=== PATIENT | female | born 1980 | race Two or more races ===

== ENCOUNTER 2016-09-29 07:30 | Inpatient (IN) | payer BC ==
[2016-09-29 08:30] VITALS: BMI 41.5
[2016-09-29] MEDS ORDERED: ELECTROLYTE-148 SOLN 500 ML IV ONE ×3 (09:13→10:15)
[2016-09-29] MEDS ORDERED: CITRIC ACID/SODIUM CITRATE 30 ML UNIT-DOSE CUP PO ONE (09:13)
[2016-09-29] MEDS ORDERED: ELECTROLYTE-148 SOLN 1,000 ML IV SCH ×2 (09:15→12:15)
--- NOTE | 2016-09-29 09:29 | HP ---
[id number] Chief Complaint: 36 yo P1 with at EGA 39w3d admitted for repeat section. 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: Alzheimer's, CVA, Dementia, Migraine, Multiple Sclerosis, Peripheral Neuropathy, Parkinson's, Seizure, Syncope, TIA, Vertigo, Other Cardiovascular: No: AFIB, Aneurysm, Aortic Insufficiency, Aortic Stenosis, CAD, CHF, Deep Vein Thrombosis, HTN, Hyperlipdemia, [place], Mitral Insufficiency, Mitral Stenosis, Murmur, Pulmonary Hypertension, Other Pulmonary: No: Asthma, Bronchitis, Cancer, COPD, O2 Dependent, Pneumonia, Previously Intubated, Pulmonary Embolus, Pulmonary Fibrosis, Sleep Apnea, Other Gastrointestinal: No: Ascites, Cancer, Constipation, Crohn's Disease, Diverticulitis, Diverticulosis, Esophageal Varices, Gastritis, GERD, GI Bleed, Hemorrhoids, Hiatal Hernia, Inflamatory Bowel Disease, Irritable Bowel Disease, Pancreatitis, Peptic Ulcer Disease, Ulcerative Colitis, Other Hepatobiliary: No: Cirrhosis, Cholelithiasis, Cholecystitis, Choledocholithiasis , Hepatitis A, Hepatitis B, Hepatitis C, Other Renal/: No: Renal Failure, Renal Inusuff, BPH, Cancer, Hematuria, Hemodialysis , Neurogenic Bladder, Renal Calculi, UTI, Other Reproductive: No: Ectopic , Endometriosis, Fibroids, PID, Polycystic Ovary Syndrome, Postmenopausal, Other ...: 7 ...Para: 1 ...Term: 1 ...: 0 ...Spon : 2 ...Induced : 3 ...Multiple Gestation: 0 ...LMP: 12/27/15 ... Weeks Gestation by Dates: 39.5 ...EDC by Dates: 10/02/16 ...EDC by Sono: 10/04/16 Heme/Onc: No: Anemia, B12 Deficiency, Bleeding Disorder, Cancer, Current Chemotherapy, Current Radiation Therapy, Hemochromatosis, Hypercoaguable State, Myeloproliferative Synd, Sickle Cell Disease, Sickle Cell Trait, Thrombocytopenia, Other Infectious Disease: No: AIDS, C-Diff, Herpes Zoster, HIV, MRSA, STD's, Tuberculosis, VREF, Other Psych: No: Addictions, Anxiety, Bipolar, Depression, Panic, Psychosis, Schizophrenia, Other Musculoskeletal: No: Bursitis, Chronic low back pain, Hemiparesis, Hemiplegia, Osteoarthritis, Paraplegia, Other Rheumatology: No: Fibromyalgia, Gout, Lupus, Rheumatoid Arthritis, Sarcoidosis, Vasculitis, Other ENT: No: Allergic Rhinitis, Sinusitis, Other Endocrine: Yes: Other (GDM A2) Dermatology: No: Basal Cell, Cellulitis, Eczema, Melanoma, Psoriasis, Squamous Cell, Other - Past Surgical History Past Surgical History: Yes: Hx Myomectomy: No Hx Transabdominal Cerclage: No - Smoking History Smoking history: Never smoked Have you smoked in the past 12 months: No Aproximately how many cigarettes per day: 0 - Alcohol/Substance Use Hx Alcohol Use: No History of Substance Use: reports: None - Social History Usual Living Arrangement: Yes: With Spouse, With Child ADL: Independent History of Recent Travel: No Home Medications - Allergies Allergies/Adverse Reactions: Allergies Allergy/AdvReac Type Severity Reaction Status Date / Time No Known Drug Allergies Allergy Verified 09/02/16 16:14 - Home Medications Home Medications: Ambulatory Orders Pnv95/Iron Fum/Folic Acid [ Caplet] 1 each PO DAILY 04/26/16 Insulin (Levemir) [Levemir Flexpen -] 20 units SQ DAILY 08/26/16 Insulin Aspart [Novolog] 16 unit SQ DAILY 08/26/16 Insulin Aspart [Novolog] 26 unit SQ DAILY 08/26/16 Review of Systems Findings/Remarks: Well appearing - Review of Systems Constitutional: reports: No Symptoms Eyes: reports: No Symptoms HENT: reports: No Symptoms Neck: reports: No Symptoms Cardiovascular: reports: No Symptoms Respiratory: reports: No Symptoms Gastrointestinal: reports: No Symptoms Genitourinary: reports: No Symptoms Breasts: reports: No Symptoms Reported Musculoskeletal: reports: No Symptoms Integumentary: reports: No Symptoms Neurological: reports: No Symptoms Endocrine: reports: No Symptoms Hematology/Lymphatic: reports: No Symptoms Psychiatric: reports: No Symptoms Pain Intensity: 0 Physical Exam - Maternity Vital Signs: Vital Signs Temperature 97.5 F L 09/29/16 08:21 Pulse Rate 72 09/29/16 08:21 Respiratory Rate 20 09/29/16 08:21 Blood Pressure 111/58 09/29/16 08:21 O2 Sat by Pulse Oximetry (%) Constitutional: Yes: No Distress, Calm, Obese Eyes: Yes: WNL, Conjunctiva Clear HENT: Yes: WNL, Atraumatic, Normocephalic Neck: Yes: WNL, Supple, Trachea Midline Cardiovascular: Yes: WNL, Regular Rate and Rhythm Lungs: Clear to auscultation, Normal air movement Breast(s): Yes: WNL - Abdominal Exam/OB Fundal Height: 41 Number of Fetuses: Single Presentation: Vertex Contractions: No Monitor Mode: External Heart Rate (range): 140 Heart Rate Location: Midline Category: I Accelerations: Non-Uniform Decelerations: None - Vaginal Exam/OB Vaginal Bleediing: No Speculum Exam: No Dilatation (cm): 0 Effacement (%): 0 Amniotic Membrane Status: Intact Presentation: Vertex/Position Station: -4 - Physical Exam Musculoskeletal: Yes: WNL Extremities: Yes: WNL Edema: No Integumentary: Yes: WNL Deep Tendon Reflex Grade: Normal +2 ...Motor Strength: WNL Psychiatric: Yes: WNL, Alert, Oriented Hemorrhage Risk Assessment - Risk Factors Medium Risk Factors: Yes: Prior , uterine surgery,or multiple laparotomies, Obesity (BMI >40) High Risk Factors: Yes: None Risk Score: 2 Risk Level: High Risk Imaging - Results Ultrasound: Report Reviewed Problem List - Problems (1) with 39 completed weeks gestation Assessment/Plan: Pt is not in labor. Fetus with Category I tracing Code(s): Z3A.39 - 39 WEEKS GESTATION OF (2) Previous delivery, antepartum condition or complication Assessment/Plan: Pt declined and requested repeat section. We had a long discussion re: risks of surgery and delivery, including infection, bleeding, trauma to underlying structures and organs, injury to fetus, pain, etc. The pt verbalized her understanding. Code(s): O34.219 - MATERNAL CARE FOR UNSP TYPE SCAR FROM PREVIOUS DEL (3) GDM, class A2 Assessment/Plan: FSG are well controlled with insulin. Peds aware. Code(s): O24.414 - GESTATIONAL DIABETES IN , INSULIN CONTROLLED (4) Maternal obesity affecting , antepartum Code(s): O99.210 - OBESITY COMPLICATING , UNSPECIFIED TRIMESTER (5) Prior poor obstetrical history in third trimester, antepartum Assessment/Plan: Prior SAB and TOP. First child with developmental delays. Code(s): O09.293 - SUPRVSN OF PREG W POOR REPRODCTV OR OBSTET HX, THIRD TRI (6) Twin , mate stillborn Assessment/Plan: Pt with one twin demise at second trimester. Code(s): Z37.3 - TWINS, ONE LIVEBORN AND ONE STILLBORN Assessment/Plan 36 yo P1 with prior C/S and high-risk admitted for repeat C/S. Risks, benefits, alternatives were discussed.
[2016-09-29] MEDS ORDERED: morphine SULFATE/Preservative Free 0.5 MG/ML (1cc Syringe) EP ONE (10:02)
[2016-09-29] MEDS ORDERED: ONDANSETRON 4 MG/2 ML VIAL IVPB PRN (10:02)
[2016-09-29] MEDS ORDERED: IBUPROFEN 800 MG/8 ML IJ IVPB PRN (10:03)
[2016-09-29 12:03] LABS: ARTERIAL BLD GAS O2 SATURATION 18.7 % (90-98.9); ARTERIAL BLOOD GAS BASE EXCESS -1.8 meq/l (-2-2); ARTERIAL BLOOD GAS HCO3 25.5 meq/L (22-26); ARTERIAL BLOOD GAS pH 7.28 (7.35-7.45)
[2016-09-29 12:05] LABS: LPM/O2% 21%; PT. ON O2? NO; TYPE OF O2 ROOM AIR
[2016-09-29 12:06] LABS: VENOUS BLOOD GAS HCO3 22.7 meq/L (19-25)
[2016-09-29 12:06] LABS: ARTERIAL BLOOD GAS PO2 14.5 mmHg (80-100)
[2016-09-29 12:07] LABS: VENOUS PH 7.37 (7.32-7.42)
--- NOTE | 2016-09-29 12:49 | PN ---
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
--- NOTE | 2016-09-29 13:56 | OP ---
DATE OF OPERATION: 09/29/2016 PREOPERATIVE DIAGNOSES: A 36-year-old female with at 39 weeks 3 days, previous section, CISCO A2, maternal obesity affecting antepartum care and management, twin gestation with 1 twin demised in the 2nd trimester, patient is not in labor. POSTOPERATIVE DIAGNOSES: A 36-year-old female with at 39 weeks 3 days, previous section, CISCO A2, maternal obesity affecting antepartum care and management, twin gestation with 1 twin demised in the 2nd trimester, patient is not in labor, delivered. PROCEDURE: Repeat low-transverse section via Pfannenstiel skin incision. SURGEON: Aldo Hassan MD MAINTENANCE CARPENTER: Raina Chino MD ANESTHESIOLOGIST: Akira Peguero MD ANESTHESIA: Spinal. COMPLICATIONS: None. ESTIMATED BLOOD LOSS: 700 mL. URINE OUTPUT: 700 mL of clear urine at the end of the procedure. IV FLUIDS: 1200 mL of crystalloids. PATHOLOGY: Placenta. FINDINGS: Live baby girl in vertex presentation. No meconium in amniotic fluids. Nuchal cord was wrapped around tightly once and released at delivery. Baby's Apgars are 8 and 9. Baby's weight is 6 pounds 3 ounces. Umbilical cord gases sent. PROCEDURE: The patient was met preoperatively. Risks, benefits, alternatives of surgery were discussed in detail. The patient was then brought to the OR with IV running. She was placed on the surgical table in a sitting position. The spinal anesthesia was achieved without difficulty. The patient was then placed in a supine position with a leftward tilt. She was prepped and draped in the usual sterile fashion. A Key catheter was inserted inside the bladder and left to drain to gravity. The time-out procedure was conducted as per standard protocol. The surgeons then proceeded with the operation. A Pfannenstiel skin incision was made with the knife along the prior scar. The incision was carried taken down to the level of fascia. Dense adhesions were lysed along the way. The fascia was incised in the midline. The incision was extended bilaterally using Banks scissors. The fascia was dissected away from the rectus muscle superiorly and inferiorly using sharp dissection. Good hemostasis was maintained. The rectus muscles were in the midline. The peritoneum was identified and entered sharply. The peritoneal incision was extended superiorly and inferiorly using Metzenbaum scissors. The bladder peritoneum was dissected away from the lower uterine segment using sharp dissection. The bladder was reflected downwards using Ramez retractor. The uterus was incised transversely in the lower uterine segment. The uterine incision was extended bilaterally using bandage scissors. The amniotic bag was ruptured and the fetus was delivered from vertex presentation without complications. A tight nuchal cord was wrapped around once and released without difficulty. 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 The placenta was removed manually without complications. The uterus was cleared of all clots and debris. The uterine cavity was surveyed thoroughly to assure no retained products of conception. The uterine incision was then closed using a 0 Biosyn suture in a running locking stitch, with good hemostasis. The uterine incision was then imbricated using a secondary layer of closure with a Biosyn suture. The bladder peritoneum was approximated using a 2-0 chromic suture. The operative site was irrigated using copious amounts of normal saline. Once the saline was aspirated, good hemostasis was confirmed. The abdominal peritoneum was closed using a 2-0 chromic suture. The rectus muscles were approximated using several interrupted 2-0 chromic sutures. The fascia was closed with a 0 Vicryl suture in 2 segments. The subcutaneous adipose tissues were approximated to eliminate space using 2-0 chromic sutures. The skin was closed with a subcutaneous stitch using a 4-0 Vicryl suture. The patient tolerated procedure well. Sponge, lap, needle counts were correct. Ayanna [id number]
[2016-09-29] MEDS ORDERED: D5W-LR W/ 20 UNITS OXYTOCIN 1,000 ML IV SCH (14:45)
--- NOTE | 2016-09-30 08:01 | PN ---
Progress Note (short form) - Note Progress Note: Post op day#1.S/P C section under spinal with duramorph uneventful.Patient stable and does not c/o pain.No any anesoblem.Patient DC from the thesia related pranesthesia care.
[2016-09-30] MEDS: ENOXAPARIN NA (PORCINE) 40 MG/0.4 ML DISP.SYRIN SQ SCH (11:05)
[2016-09-30] MEDS: ACETAMINOPHEN 325 MG TABLET (FP) PO PRN ×2 (11:48→20:45)
[2016-09-30] MEDS: IBUPROFEN 600 MG TABLET (FP) PO PRN ×2 (11:49→20:45)
[2016-09-30] MEDS ORDERED: oxyCODONE HCL 5 MG TABLET PO PRN ×2 (11:56→11:57)
[2016-09-30] MEDS ORDERED: DIPHTH,PERTUSS(ACELL),TET 0.5 ML DISP.SYRIN IM ONE (14:00)
--- NOTE | 2016-09-30 16:56 | PN ---
Post Progress Note - Subjective Subjective: 36 yo P2 s/p Repeat c/section voiding, ambulating, tolerating PO, + flatus Post Day: 1 Type of Delivery: Repeat C/S Vital Signs: Vital Signs Temperature 98.0 F 09/30/16 05:53 Pulse Rate 68 09/30/16 05:53 Respiratory Rate 20 09/30/16 12:00 Blood Pressure 117/59 09/30/16 05:53 O2 Sat by Pulse Oximetry (%) 100 09/29/16 13:10 Breast Exam: Yes: Soft Uterus: Yes: Fundus Firm Incision: Yes: Dressing dry and intact Abdomen/GI: Yes: Abdomen soft, Tolerating PO Lochia: Yes: Rubra Lochia, amount: Small Extremities: Yes: Calves non-tender Activity: Ambulating Assessment/Plan 36 yo P2 s/p R c/section VSS, Afibrile Doing well pain well managed continue routine care
[2016-10-01] MEDS: ACETAMINOPHEN 325 MG TABLET (FP) PO PRN ×3 (08:18→23:22)
[2016-10-01] MEDS: IBUPROFEN 600 MG TABLET (FP) PO PRN ×3 (08:19→23:23)
[2016-10-01] MEDS: ENOXAPARIN NA (PORCINE) 40 MG/0.4 ML DISP.SYRIN SQ SCH (10:29)
--- NOTE | 2016-10-01 16:55 | PN ---
Post Progress Note - Subjective Subjective: No complaints, (+) flatus, ambulating Post Day: 2 Type of Delivery: Repeat C/S Vital Signs: Vital Signs Temperature 98 F 10/01/16 10:00 Pulse Rate 84 10/01/16 10:00 Respiratory Rate 20 10/01/16 10:00 Blood Pressure 122/79 10/01/16 10:00 O2 Sat by Pulse Oximetry (%) 100 09/29/16 13:10 Breast Exam: Yes: Soft Uterus: Yes: Fundus Firm, Fundus below umbilicus, Non-tender Incision: Yes: Sutures intact Abdomen/GI: Yes: Abdomen soft, Tolerating PO Lochia: Yes: Rubra Lochia, amount: Small Extremities: Yes: Calves non-tender, Edema Perineum: Yes: Intact Activity: Ambulating Problem List - Problems (1) with 39 completed weeks gestation Code(s): Z3A.39 - 39 WEEKS GESTATION OF (2) Previous delivery, antepartum condition or complication Code(s): O34.219 - MATERNAL CARE FOR UNSP TYPE SCAR FROM PREVIOUS DEL (3) GDM, class A2 Code(s): O24.414 - GESTATIONAL DIABETES IN , INSULIN CONTROLLED (4) Maternal obesity affecting , antepartum Code(s): O99.210 - OBESITY COMPLICATING , UNSPECIFIED TRIMESTER (5) Prior poor obstetrical history in third trimester, antepartum Code(s): O09.293 - SUPRVSN OF PREG W POOR REPRODCTV OR OBSTET HX, THIRD TRI (6) Twin , mate stillborn Code(s): Z37.3 - TWINS, ONE LIVEBORN AND ONE STILLBORN Assessment/Plan 36 yo P2 s/p repeat LT C/S, doing well stable, afebrile. care instructions reviewed. Continue routine postop care. Ambulation encouraged.
[2016-10-02 06:25] LABS: EOSINOPHIL 5.5 % (0-4.5); MCH 28.2 pg (25.7-33.7); MCHC 32.2 g/dl (32.0-36.0); MEAN CELL VOLUME 87.7 fl (80-96); MEAN PLT VOLUME 9.8 fl (7.5-11.1); NEUTROPHILS 58.7 % (42.8-82.8); PLATELET COUNT 181 K/MM3 (134-434); RDW 13.9 % (11.6-15.6); WHITE BLOOD COUNT 6.4 K/mm3 (4.0-10.0)
[2016-10-02] MEDS: ACETAMINOPHEN 325 MG TABLET (FP) PO PRN (07:21)
[2016-10-02] MEDS: IBUPROFEN 600 MG TABLET (FP) PO PRN (07:24)
[2016-10-02 08:20] VITALS: BP 131/57; PULSE 60; TEMP 98.6
--- NOTE | 2016-10-02 09:03 | DS ---
Physical Exam-PEST CONTROL OPERATOR Vital Signs: Vital Signs Temperature 98.6 F 10/02/16 08:18 Pulse Rate 60 10/02/16 08:18 Respiratory Rate 18 10/02/16 08:18 Blood Pressure 131/57 10/02/16 08:18 O2 Sat by Pulse Oximetry (%) 100 09/29/16 13:10 Constitutional: Yes: Well Nourished, No Distress, Calm Eyes: Yes: WNL, Conjunctiva Clear HENT: Yes: WNL, Atraumatic, Normocephalic Neck: Yes: WNL, Supple, Trachea Midline Cardiovascular: Yes: WNL, Regular Rate and Rhythm Respiratory: Yes: WNL, Regular, CTA Bilaterally Gastrointestinal: Yes: WNL, Normal Bowel Sounds, Soft Renal/: Yes: WNL External Genitalia: Yes: Normal Internal Exam Deferred: Yes ....Post : Yes: Uterus firm, Uterus non-tender, Slight lochia rubra Breast(s): Yes: WNL Musculoskeletal: Yes: WNL Extremities: Yes: WNL Edema: Yes Edema: LLE: Trace, RLE: Trace Integumentary: Yes: WNL Wound/Incision: Yes: Clean/Dry, Well Approximated, Sutures Intact, Steri Strips , Open to air Neurological: Yes: WNL, Alert, Oriented ...Motor Strength: WNL Psychiatric: Yes: WNL, Alert, Oriented Labs: CBC, BMP 10/02/16 05:43 Delivery - Delivery Section: Repeat, Low Flap Transverse Type of Anesthesia: Spinal Episiotomy/Laceration: None EBL (cc): 700 Delivery, Single - Stages of Labor Date of Delivery: 09/29/16 Time of Delivery: 11:11 Time Placenta Delivered: 11:12 Placenta: Yes: Manual Removal, Normal Configuration - Condition of Stablehand/Mutuel Clerk Present: Yes Name: Bernie Velasco Infant Gender: Female Weight: 2.807 kg Total Hours ROM (Hrs/Mins): 0/01 - 1 Minute Total Score: 8 5 Minutes Total Score: 9 - Feeding Plan Initial Plan: Elected not to breastfeed exclusively throughout hospitalization Remarks - Remarks Remarks: 36yo P2 s/p repeat LT C/S, doing well stable, afebrile. Asymptomatic for anemia. care instructions reviewed. Continue routine postop care. Ambulation encouraged. Discharge Summary Reason For Visit: REPEAT C/SECTION Current Active Problems delivery delivered (Acute) GDM, class A2 (Acute) Maternal obesity affecting , antepartum (Acute) with 39 completed weeks gestation (Acute) Previous delivery, antepartum condition or complication (Acute) Prior poor obstetrical history in third trimester, antepartum (Acute) Twin , mate stillborn (Acute) Condition: Good - Instructions Diet, Activity, Other Instructions: Physical activity Resume your normal everyday activity as tolerated no heavy lifting or exercise until seen by your surgeon. You may walk unlimited jjaa of and climb stairs. You may resume driving the car when you feel safe and comfortable behind the wheel. No sexual activity as instructed. Wound care If you have a bandage, leave it on, and keep dry for 48-72 hours. After that time discard the outer bandage. If they are tapes on the skin under the out of bandage leave them in place. They will peel off in the next 7 to 10 days. Do Not Peel them off. You may shower the day after surgery. If there are tapes present on the skin, you may shower over them. Diet There are no dietary restrictions. Eat healthy, high-fiber foods. Drink 6 to 8 glasses of liquid each day. This will assist in keeping your bowels are regular. Pain management You may take Tylenol or acetaminophen or Ibuprofen (for example, Motrin, Advil etc.) from my pain prescription medication is ordered should be taken as prescribed for moderate to severe pain. Call MD for any of the following: Severe pain not relieved by medication Fever of 101 or higher Excessive bleeding or drainage on dressing Inability to urinate Referrals: Aldo Hassan MD [Staff Physician] - Disposition: HOME - Home Medications Comprehensive Discharge Medication List: Ambulatory Orders Pnv95/Iron Fum/Folic Acid [ Caplet] 1 each PO DAILY 04/26/16 Insulin (Levemir) [Levemir Flexpen -] 20 units SQ DAILY 08/26/16 Insulin Aspart [Novolog] 16 unit SQ DAILY 08/26/16 Insulin Aspart [Novolog] 26 unit SQ DAILY 08/26/16 RX: Ibuprofen [Motrin -] 600 mg PO Q6H PRN #28 tablet 10/01/16
[2016-10-02] MEDS: ENOXAPARIN NA (PORCINE) 40 MG/0.4 ML DISP.SYRIN SQ SCH (09:37)
--- NOTE | 2016-10-08 11:18 | PATH ---
Surgical Pathology Report Patient Name: CHRISTI SIMMS [facility]. Rec. 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 Specimen(s) Received PLACENTA Clinical History , IDGD Repeat c/section Final Diagnosis PLACENTA, DELIVERY: FOCALLY DISRUPTED, SMALL (<400 GM), THIRD TRIMESTER PLACENTA WITH MILD PREVILLOUS, PERIVILLOUS, AND PRECHORIONIC FIBRIN DEPOSITION, THREE VESSEL UMBILICAL CORD, AND PLACENTAL MEMBRANES WITH FOCAL ACUTE CHORIOAMNIONITIS. Electronically Signed Juan Paul M.D. Gross Description The specimen is received fresh, labeled "placenta" and is a 373 gram, 16.5 x 14.0 x 2.3 cm placenta with attached membranes and umbilical cord. The attached membranes are mehta, thick, cloudy and insert marginally. The umbilical cord measures 6 cm in length and averages 1.1 cm in diameter. The cord inserts eccentrically, 3.5 cm. to the nearest margin. No true knots or strictures are identified. Cut surface of the umbilical cord reveals 3 vessels. The surface is stauffer-blue with fibrin deposition and appropriate caliber vessels. The maternal surface is red-brown with focal defects. Sectioning reveals red-brown, spongy parenchyma. No focal lesions are identified. Order Picker/Assembler sections are submitted in three cassettes as follows: 1- membrane rolls and umbilical cord; 2-3- full thickness sections of placenta. /10/01/2016 [facility]10/01/2016
== END 2016-10-02 13:05 | disposition home or self-care (01) | DRG 765 ==
LOC: JLDR 07:40 → J3W 13:25
PROVIDERS: ADMIT Obstetrics & Gynecology; ATTEND Obstetrics & Gynecology
PROC: 10D00Z1 Extraction of Products of Conception, Low, Open Approach (ICD-10-PCS; principal; 2016-09-29)
DX: O34.211 Maternal care for low transverse scar from previous cesarean delivery (principal); Z68.41 Body mass index [BMI] 40.0-44.9, adult; O24.429 Gestational diabetes mellitus in childbirth, unspecified control; O99.214 Obesity complicating childbirth; E66.9 Obesity, unspecified; Z3A.39 39 weeks gestation of pregnancy; O09.523 Supervision of elderly multigravida, third trimester; O30.003 Twin pregnancy, unspecified number of placenta and unspecified number of amniotic sacs, third trimester; Z37.3 Twins, one liveborn and one stillborn
CPT/HCPCS: 36415; 36600; 82803; 85025; 88307-TC

== ENCOUNTER 2020-03-30 04:24 | Day surgery (SDC) | payer BC ==
[2020-03-29 11:45] VITALS: BMI 35.6
[2020-03-30] MEDS ORDERED: MIDAZOLAM HCL 2 MG/2 ML SINGLE DOSE VIAL ONE ×4 (14:27→15:07)
[2020-03-30] MEDS ORDERED: ceFAZolin SODIUM 1 GM VIAL ONE (14:31)
[2020-03-30] MEDS ORDERED: ceFAZolin SODIUM 1 GM VIAL IVPB ONE (14:40)
[2020-03-30] MEDS ORDERED: SILVER NITRATE 75% APPLIC STCK 1 PKT EACH TP ONE (15:08)
[2020-03-30] MEDS ORDERED: KETOROLAC TROMETHAMINE 30 MG/1 ML VIAL ONE (15:16)
[2020-03-30] MEDS ORDERED: ONDANSETRON 4 MG/2 ML VIAL IVPUSH PRN (15:23)
[2020-03-30] MEDS ORDERED: PROMETHAZINE HCL 25 MG/1 ML VIAL IVPB PRN (15:23)
[2020-03-30] MEDS ORDERED: oxyCODONE HCL 5 MG TABLET PO PRN (15:23)
[2020-03-30 19:48] VITALS: BP 114/70; PULSE 64; TEMP 97
== END 2020-03-30 19:35 | disposition home or self-care (01) ==
LOC: JASU-SURG 04:24
PROVIDERS: ATTEND Obstetrics & Gynecology
PROC: 0UDB7ZX Extraction of Endometrium, Via Natural or Artificial Opening, Diagnostic (ICD-10-PCS; 2020-03-30)
PROC: 0UJD8ZZ Inspection of Uterus and Cervix, Via Natural or Artificial Opening Endoscopic (ICD-10-PCS; 2020-03-30)
PROC: 0UB97ZX Excision of Uterus, Via Natural or Artificial Opening, Diagnostic (ICD-10-PCS; principal; 2020-03-30 14:00)
DX: N92.1 Excessive and frequent menstruation with irregular cycle (principal); N84.0 Polyp of corpus uteri; E66.9 Obesity, unspecified
CPT/HCPCS: 36415; 84703; 86850; 86900; 86901; 88305-TC; 94760

== ENCOUNTER 2020-07-30 05:58 | Day surgery (SDC) | payer SELFPAY ==
[2020-07-30 06:40] VITALS: BMI 32.3
[2020-07-30] MEDS ORDERED: BUPIVACAINE HCL/PF 0.25% (2.5MG/ML) 10 ML VIAL ONE (07:17)
[2020-07-30] MEDS ORDERED: EPINEPHrine/PF 1 MG/1 ML (1:1,000) AMPULE ONE ×2 (07:17→07:59)
[2020-07-30] MEDS ORDERED: LIDOCAINE HCL 1%, 10 MG/ML (20ML VIAL) ONE (07:17)
[2020-07-30] MEDS ORDERED: BACITRACIN 15 GM TUBE TOPICAL OINTMENT ONE (07:17)
[2020-07-30] MEDS ORDERED: BUPIVACAINE LIPOSOME/PF (EXPAREL) 266 MG/20 ML VIAL ONE (07:28)
[2020-07-30] MEDS ORDERED: SCOPOLAMINE HYDROBROMIDE 1 PATCH PATCH.TD72 ONE (07:30)
[2020-07-30] MEDS ORDERED: fentaNYL CITRATE 250 MCG/5 ML VIAL ONE (07:58)
[2020-07-30] MEDS ORDERED: MIDAZOLAM HCL 2 MG/2 ML SINGLE DOSE VIAL ONE ×2 (07:58)
[2020-07-30] MEDS ORDERED: ROCURONIUM BROMIDE 50 MG/5 ML SYRINGE ONE ×3 (07:59→12:28)
[2020-07-30] MEDS ORDERED: PROPOFOL 20 ML ONE ×2 (07:59→13:16)
[2020-07-30] MEDS ORDERED: HEPARIN NA (PORCINE) 5,000 UNITS/ML 1ML VIAL ONE (08:12)
[2020-07-30] MEDS ORDERED: HEPARIN NA (PORCINE) 5,000 UNITS/ML 1ML VIAL SQ ONE (08:24)
[2020-07-30] MEDS ORDERED: NITROGLYCERIN 2% OINTMENT - 1GM PACKET TD ONE ×2 (08:59→14:31)
[2020-07-30] MEDS ORDERED: BUPIVACAINE LIPOSOME/PF (EXPAREL) 266 MG/20 ML VIAL NR ONE (12:23)
[2020-07-30] MEDS ORDERED: BUPIVACAINE HCL/PF 0.25% (2.5MG/ML) 10 ML VIAL IJ ONE (12:24)
[2020-07-30] MEDS ORDERED: SUCCINYLCHOLINE CHLORIDE 200 MG/10 ML SYRINGE ONE (13:16)
[2020-07-30] MEDS ORDERED: NEOSTIGMINE METHYLSULFATE 0.5 MG/1 ML - 10 ML MDV ONE (13:17)
[2020-07-30] MEDS ORDERED: ONDANSETRON 4 MG/2 ML VIAL IVPUSH PRN (14:39)
[2020-07-30] MEDS ORDERED: LACTATED RINGERS SOLUTION 1,000 ML IV SCH (14:45)
[2020-07-30] MEDS ORDERED: ONDANSETRON 4 MG/2 ML VIAL ONE (15:02)
[2020-07-30] MEDS ORDERED: ONDANSETRON 4 MG/2 ML VIAL IVPB PRN (15:14)
[2020-07-30] MEDS ORDERED: morphine SULFATE 4 MG/ML VIAL IVPUSH PRN (15:14)
[2020-07-30] MEDS ORDERED: MORPHINE SULFATE 10 MG/1 ML *VIAL ONE (15:51)
[2020-07-30] MEDS ORDERED: morphine CARPU-JECT 10 MG/1 ML DISP.SYRIN IVPUSH ONE (15:55)
[2020-07-30] MEDS: CEFAZOLIN 1 GM/D5W 1 GM/50 ML BAG IVPB SCH (18:59)
[2020-07-30] MEDS: oxyCODONE HCL 5 MG TABLET PO PRN (20:59)
[2020-07-30] MEDS: HEPARIN NA (PORCINE) 5,000 UNITS/ML 1ML VIAL SQ SCH (21:03)
[2020-07-31] MEDS: CEFAZOLIN 1 GM/D5W 1 GM/50 ML BAG IVPB SCH ×3 (01:24→17:56)
[2020-07-31] MEDS: oxyCODONE HCL 5 MG TABLET PO PRN ×2 (06:45→12:44)
[2020-07-31] MEDS: LACTATED RINGERS SOLUTION 1,000 ML IV SCH ×2 (08:18→15:20)
[2020-07-31] MEDS: HEPARIN NA (PORCINE) 5,000 UNITS/ML 1ML VIAL SQ SCH (10:03)
[2020-07-31] MEDS ORDERED: ACETAMINOPHEN 325 MG TABLET (FP) PO SCH (14:30)
[2020-07-31] MEDS ORDERED: LACTATED RINGERS SOLUTION 1,000 ML IV ONE (14:45)
[2020-07-31 15:29] LABS: BASO % 0.5 % (0-2.0); EOS % 0.2 % (0-4.5); HEMATOCRIT 24.9 % (32.4-45.2); HEMOGLOBIN 7.8 GM/dl (10.7-15.3); LYMPH % 12.7 % (8-40); MCH 23.4 pg (25.7-33.7); MCHC 31.4 g/dl (32.0-36.0); MEAN CELL VOLUME 74.6 fl (80-96); MEAN PLT VOLUME 9.3 fl (7.5-11.1); MONO % 9.1 % (3.8-10.2); NEUT % 77.5 % (42.8-82.8); PLATELET COUNT 229 K/MM3 (134-434); RBC 3.33 M/mm3 (3.60-5.2); RDW 16.1 % (11.6-15.6); WHITE BLOOD COUNT 10.8 K/mm3 (4.0-10.8)
[2020-07-31 15:41] LABS: ADD RBC MORPHOLOGY YES
[2020-07-31 17:05] VITALS: BP 100/51; PULSE 62; TEMP 97.6
[2020-07-31 18:57] LABS: ANISOCYTOSIS 1+
== END 2020-07-31 17:58 | disposition home or self-care (01) ==
LOC: FASUSAT 05:58 → FM/S 17:24 → FASUSAT 07-31 17:58
PROVIDERS: ATTEND Plastic Surgery
CPT/HCPCS: 36415; 85025; 88300-TC; 94760; J1644

== ENCOUNTER 2022-08-11 05:21 | Day surgery (SDC) | payer OTHER ==
[2022-08-07 09:14] VITALS: BMI 36.4
[2022-08-11 09:10] LABS: INR 1.18 (0.83-1.09); PROTHROMBIN TIME (PATIENT) 13.7 SEC (9.7-13.0)
[2022-08-11 09:11] LABS: HEMATOCRIT 29.2 % (32.4-45.2); HEMOGLOBIN 9.1 GM/dL (10.7-15.3); MCH 22.2 pg (25.7-33.7); MCHC 31.2 g/dl (32.0-36.0); MEAN CELL VOLUME 71.1 fl (80-96); MEAN PLT VOLUME 8.5 fl (7.5-11.1); PLATELET COUNT 260 10^3/uL (134-434); RDW 17.7 % (11.6-15.6); WHITE BLOOD COUNT 6.6 K/mm3 (4.0-10.0)
[2022-08-11] MEDS ORDERED: SCOPOLAMINE HYDROBROMIDE 1 PATCH PATCH.TD72 ONE (13:54)
[2022-08-11] MEDS ORDERED: MIDAZOLAM HCL 2 MG/2 ML SINGLE DOSE VIAL ONE (14:27)
[2022-08-11] MEDS ORDERED: ceFAZolin SODIUM 1 GM VIAL IVPB ONE ×2 (14:42→14:47)
[2022-08-11] MEDS ORDERED: ACETAMINOPHEN INJECTION 100 ML IVPB ONE (14:45)
[2022-08-11] MEDS ORDERED: PROPOFOL 40 ML ONE (14:53)
[2022-08-11] MEDS ORDERED: oxyCODONE HCL 5 MG TABLET PO ONE (16:57)
[2022-08-11] MEDS ORDERED: oxyCODONE HCL 10 MG SUSTAINED ACTING TABLET ONE (16:59)
[2022-08-11 19:39] VITALS: RESP 20; TEMP 97.5
[2022-08-11 19:41] VITALS: BP 128/59; PULSE 67
== END 2022-08-11 17:36 | disposition home or self-care (01) ==
LOC: JASU-SURG 05:21
PROVIDERS: ATTEND Obstetrics & Gynecology
PROC: 0U5B8ZZ Destruction of Endometrium, Via Natural or Artificial Opening Endoscopic (ICD-10-PCS; principal; 2022-08-11 10:00)
DX: N92.0 Excessive and frequent menstruation with regular cycle (principal); D50.0 Iron deficiency anemia secondary to blood loss (chronic)
CPT/HCPCS: 36415; 81025; 85027; 85610; 88305-TC; 94760

== ENCOUNTER 2023-01-27 20:06 | Emergency (ER) | payer OTHER ==
[2023-01-27 20:10] VITALS: BP 102/51; PULSE 71; RESP 16; TEMP 98.2; BMI 40.0
[2023-01-27] MEDS ORDERED: LIDOCAINE 5% TOPICAL PATCH TP ONE (21:17)
[2023-01-27] MEDS ORDERED: ACETAMINOPHEN 325 MG TABLET (FP) PO ONE (21:17)
[2023-01-27] MEDS ORDERED: LIDOCAINE 5% TOPICAL PATCH ONE (21:30)
[2023-01-27] MEDS ORDERED: ACETAMINOPHEN 325 MG TABLET (FP) ONE (21:31)
[2023-01-27 21:53] LABS: PH,URINE 5.5 (5.0-8.0); URINE APPEARANCE CLEAR; URINE BILIRUBIN NEGATIVE (NEGATIVE); URINE COLOR YELLOW; URINE GLUCOSE (UA) NEGATIVE (NEGATIVE); URINE KETONE TRACE (NEGATIVE); URINE LEUK ESTERASE NEGATIVE (NEGATIVE); URINE NITRITE NEGATIVE (NEGATIVE); URINE PROTEIN NEGATIVE (NEGATIVE); URINE UROBILINOGEN 0.2 mg/dL (0.2-1.0)
[2023-01-27 21:56] LABS: HCG,QUALITATIVE URINE Negative
[2023-01-27 23:10] LABS: BASO % 1.1 % (0-2.0); HEMATOCRIT 36.1 % (32.4-45.2); HEMOGLOBIN 11.5 GM/dL (10.7-15.3); LYMPH % 21.6 % (8-40); MCH 25.1 pg (25.7-33.7); MCHC 31.9 g/dl (32.0-36.0); MEAN CELL VOLUME 78.7 fl (80-96); MEAN PLT VOLUME 8.2 fl (7.5-11.1); MONO % 8.8 % (3.8-10.2); NEUT % 65.5 % (42.8-82.8); PLATELET COUNT 251 10^3/uL (134-434); RBC 4.59 M/mm3 (3.60-5.2); RDW 18.5 % (11.6-15.6); WHITE BLOOD COUNT 8.2 K/mm3 (4.0-10.0)
[2023-01-27 23:38] LABS: POTASSIUM 4.3 mmol/L (3.5-5.1)
[2023-01-27 23:40] LABS: CALCIUM 8.5 mg/dL (8.5-10.1)
[2023-01-27 23:41] LABS: ALBUMIN 3.3 g/dl (3.4-5.0); BLOOD UREA NITROGEN 18.6 mg/dL (7-18)
[2023-01-27 23:44] LABS: CREATININE 0.9 mg/dL (0.55-1.3)
[2023-01-27 23:45] LABS: BILIRUBIN,TOTAL 0.3 mg/dL (0.2-1); TOT PROT 7.2 g/dl (6.4-8.2)
== END 2023-01-28 01:30 | disposition left against medical advice (07) ==
LOC: JER 20:06
DX: M54.50 Low back pain, unspecified (principal); R10.31 Right lower quadrant pain
CPT/HCPCS: 36415; 74177-TC; 80053; 81003; 84703; 85025; 87086; 99285-25; Q9967

== ENCOUNTER 2024-08-15 09:33 | Emergency (ER) | payer OTHER ==
[2024-08-15 09:52] VITALS: BP 139/76; PULSE 63; RESP 17; TEMP 98.3; BMI 41.5
[2024-08-15] MEDS ORDERED: MECLIZINE HCL 25 MG TABLET (FP) ONE (10:42)
[2024-08-15] MEDS: MECLIZINE HCL 12.5 MG TABLET PO ONE (10:47)
== END 2024-08-15 12:01 | disposition home or self-care (01) ==
LOC: JER 09:33
DX: H81.10 Benign paroxysmal vertigo, unspecified ear (principal); H53.149 Visual discomfort, unspecified; R53.83 Other fatigue; R11.0 Nausea
CPT/HCPCS: 82962; 93005; 93010; 99284-25